=== PATIENT | male | born 1980 | race African-American/Black ===

== ENCOUNTER 2023-01-14 21:43 | Emergency (ER) | payer SELFPAY | END 2023-01-15 00:02 | disposition left against medical advice (07) | LOC: MADERS 21:43 | DX: Z53.21 Procedure and treatment not carried out due to patient leaving prior to being seen by health care provider (principal) ==

== ENCOUNTER 2023-01-15 10:51 | Emergency (ER) | payer SELFPAY | END 2023-01-15 11:41 | disposition home or self-care (01) | LOC: MADERS 10:51 | DX: Z76.0 Encounter for issue of repeat prescription (principal); F17.290 Nicotine dependence, other tobacco product, uncomplicated; E11.9 Type 2 diabetes mellitus without complications | CPT/HCPCS: 36416; 99282 ==